=== PATIENT | female | born 1995 | race Caucasian/White ===

== ENCOUNTER → 2017-05-24 | Outpatient (CLI) | payer OTHER ==
[2017-05-24 14:56] LABS: LUTEINIZING HORMONE 7.14 IU/L
[2017-05-24 14:57] LABS: FOLLICLE STIMULAT HORMONE 6.14 IU/L
== END | disposition home or self-care (01) ==
LOC: C.LAB1850 12:34
PROVIDERS: ATTEND Physician Assistant
DX: N92.6 Irregular menstruation, unspecified (principal)